=== PATIENT | male | born 1945 | race Caucasian/White ===

== ENCOUNTER 2017-06-12 12:13 | Day surgery (SDC) | payer MEDICARE, OTHER ==
[~2017-06-12] VITALS: Ht 170.2 cm; Wt 77.1 kg
[~2017-06-12 12:13] MED LIST: ACELLULAR PERTUSSIS VACCINE IM; ALPRAZOLAM0.5 MG; ALPRAZOLAM0.5 MG PO; ANDROGEL1.25 GM TD; ARIPIPRAZOLE2 MG PO; BUPROPION XL300 MG PO; DIPHTHERIA TOXOID IM; FLOMAX0.4 MG PO; LOSARTAN POTASS50 MG PO; OMEPRAZOLE20 MG PO; PRESERVISION A1 EACH PO; TETANUS TOXOID IM; UNITHROID200 MCG PO
--- NOTE | 2017-06-12 14:55 | NUR ---
06/12/17 Indigo5 Beena Wheat 1455 O2 SAT 98%, O2 REMOVED.
--- NOTE | 2017-06-13 10:18 | OR ---
[facility] [address], [place] [address] Signed DATE OF OPERATION: 06/12/2017 SURGEON: Jeane Bhatti MD PREOPERATIVE DIAGNOSIS: History of inflammatory changes of cecum and hyperplastic polyp of rectum in 2008. POSTOPERATIVE DIAGNOSES: 1. Extensive diverticulosis of the left colon, and sigmoid. 2. Small sessile polyp of rectosigmoid (excised). PROCEDURE: Total colonoscopy to cecum with cold morcellation polypectomy x1. ANESTHESIA: Intravenous sedation, fentanyl 100 mcg, Versed 5 mg total. INDICATION: This 71-year-old white man is the patient of Dr. Encarnacion, known to me from the past, having undergone colonoscopy in 2008, at which time he had inflammatory changes of the cecum, and hyperplastic polyp of the rectum. He is currently asymptomatic, and has no family history of colon cancer. He does have sleep apnea, and uses a BiPAP mask. He is admitted at this time to undergo surveillance colonoscopy, understand the risks of bleeding, infection, and perforation. FINDINGS: The prep was good. Complete colonoscopy was undertaken to the cecum. There was no sign of inflammatory change of the cecum. There were numerous diverticula of the sigmoid, and left colon, which made colonoscopy slightly challenging. There was a polyp of the rectosigmoid, which was sessile and was excised with cold morcellation technique. The remaining colon was normal. DESCRIPTION OF PROCEDURE: The patient was brought to the endoscopy suite, and placed in lateral decubitus position, given intravenous sedation to the point of slurred speech, and nystagmus with full cardiopulmonary monitoring. Digital rectal examination was normal. The Olympus video colonoscope was passed in the rectum, and manipulated into the sigmoid. There was some fair amount of angulation deformity related to diverticular changes. Ultimately, the scope was passed beyond this area to the remaining colon, which was ultimately advanced to the cecum without problem. Irrigation was undertaken as needed. The cecum appeared Electronically Signed By: JEANE BHATTI MD 06/13/17 1018 PATIENT NAME: DEDE WOLF OPERATIVE REPORT DATE OF : 43 PHYSICIAN: JEANE BHATTI MD REPORT #: [id number] REPORT IS CONFIDENTIAL AND NOT TO BE RELEASED WITHOUT AUTHORIZATION [facility] [address] [place], [place] [address] Signed clinically normal. Scope was withdrawn from that point. Examination throughout was undertaken showing no sign of abnormalities, specifically no polyps, cancer, or colitis, but diverticula were once again seen in the left colon, and sigmoid. At the rectosigmoid, there was a subtle flat polyp, narrow band imaging was used to better define the polyp, it was excised with cold morcellation technique completely. Further withdrawal of scope allowed for retroflex view, which was normal. Scope was removed, and the patient was taken to recovery room in good condition. CONCLUDING DIAGNOSES: 1. Polyp of rectosigmoid, excised. 2. Diverticulosis. PLAN: We would recommend a high-fiber diet. We will check pathology report. He will return to the ongoing care of Dr. Encarnacion. If the polyp is hyperplastic, then by current guidelines, an expectant approach would be reasonable. Otherwise, repeat in 10 years, and definitely sooner if the symptoms should occur. Jeane Bhatti MD JM/MODL /[id number] cc: Himanshu Encarnacion MD Electronically Signed By: JEANE BHATTI MD 06/13/17 1018 PATIENT NAME: DEDE WOLF OPERATIVE REPORT DATE OF : 43 PHYSICIAN: JEANE BHATTI MD REPORT #: [id number] REPORT IS CONFIDENTIAL AND NOT TO BE RELEASED WITHOUT AUTHORIZATION
== END 2017-06-12 15:21 | disposition home or self-care (01) ==
LOC: OPS 12:13 → DS 12:13 → OPS 14:00 → DS 14:00 → OPS 15:21
PROVIDERS: Surgery
PROC: 0DBN8ZZ Excision of Sigmoid Colon, Via Natural or Artificial Opening Endoscopic (ICD-10-PCS; principal; 2017-06-12 14:00)
DX: Z12.11 Encounter for screening for malignant neoplasm of colon (principal); D12.7 Benign neoplasm of rectosigmoid junction; K57.30 Diverticulosis of large intestine without perforation or abscess without bleeding; E29.1 Testicular hypofunction; F32.9 Major depressive disorder, single episode, unspecified; E03.9 Hypothyroidism, unspecified; G47.30 Sleep apnea, unspecified; Z86.010 Personal history of colon polyps; Z80.0 Family history of malignant neoplasm of digestive organs; Z80.7 Family history of other malignant neoplasms of lymphoid, hematopoietic and related tissues; Z79.899 Other long term (current) drug therapy
CPT/HCPCS: 88305; 99152; 99153; J2250; J3010; J7120